=== PATIENT | male | born 1995 | race African-American/Black ===

== ENCOUNTER 2023-03-21 13:48 | Emergency (ER) | payer BC, MEDICAID, OTHER ==
[~2023-03-21] VITALS: Ht 175.3 cm; Wt 94.4 kg
[2023-03-21 14:56] VITALS: BP 148/91; PULSE 73; RESP 18; TEMP 97.8; O2SAT 97
== END 2023-03-21 15:09 | disposition home or self-care (01) ==
LOC: ER 13:48
DX: Z00.01 Encounter for general adult medical examination with abnormal findings (principal); Z88.0 Allergy status to penicillin
CPT/HCPCS: 86695; 86696

== ENCOUNTER 2023-06-21 19:45 | Emergency (ER) | payer BC ==
[~2023-06-21] VITALS: Ht 175.3 cm; Wt 93.9 kg
[2023-06-21 20:45] VITALS: BP 146/88; PULSE 92; RESP 18; O2SAT 97
[2023-06-21] MEDS ORDERED: DOXY-286 PO (22:04)
== END 2023-06-21 22:39 | disposition home or self-care (01) ==
LOC: ER 19:45
DX: I10 Essential (primary) hypertension (principal); Z76.0 Encounter for issue of repeat prescription; Z88.0 Allergy status to penicillin